=== PATIENT | male | born 1990 | race Caucasian/White ===

== ENCOUNTER 2018-05-25 08:39 | Emergency (ER) | END 2018-05-25 10:15 | disposition home or self-care (01) ==

== ENCOUNTER 2019-01-03 20:17 | Emergency (ER) | payer SELFPAY ==
[~2019-01-03] VITALS: Ht 198.1 cm; Wt 103.7 kg
[~2019-01-03 20:17] MED LIST: ACET325T33 PO; AMOX500C2 PO; HYDR-3498 PO; IBUP-1542 PO; LORA-441 PO; NAPR-985 PO; TRAM50TA2 PO
[2019-01-03 20:27] VITALS: Ht 198.1 cm; Wt 103.7 kg
[2019-01-04] MEDS ORDERED: SOD CHLORIDE 0.9% 1,000 ML IV STA (00:37)
[2019-01-04] MEDS ORDERED: ONDANSETRON 4 MG INJ IV STA (00:37)
[2019-01-04] MEDS ORDERED: FAMOTIDINE 20 MG TAB PO STA (00:37)
[2019-01-04] MEDS ORDERED: KETOROLAC 30 MG INJ IV STA (00:37)
--- NOTE | 2019-01-04 00:45 | ERD ---
ER Documentation Chief Complaint Chief Complaint LOWER BACK PAIN X'S 1 DAY HPI Patient is a 28 years old male with PMHx of lumbar slipped disc presenting to the clinic for severe sharp lumbar pain rated 9/10 since yesterday. Patient denies any trauma/injury, stating that the pain came sporadically. Patient admits to taking OTC ibuprofen and 1 shot of vodka in the morning followed by 3 more shots of vodka 3 hours ago. Patient states that he drinks 1/2 pint of vodka per day. Patient admits to associated chills, night sweats, watery diarrhea, nausea, and emesis. Patient reports of 3 watery diarrhea and 4 NBNB emesis since yesterday. Patient admits to tolerating oral intake recently. Patient denies fever, bloating, hematochezia, melena, abdominal pain, tremors, hallucinations. ROS All systems reviewed and are negative except as per history of present illness. Medications Home Meds Active Scripts Ibuprofen* (Motrin*) 800 Mg Tab, 800 MG PO Q6, #30 TAB Prov:CLAUDIA SHERIFF PA-C 01/04/19 Amoxicillin* (Amoxicillin*) 500 Mg Cap, 500 MG PO Q8, #30 CAP Prov:MARIO CAMPO PA-C 05/25/18 Lorazepam* (Ativan*) 0.5 Mg Tablet, 0.5 MG PO ONCE PRN for ANXIETY, #2 TAB Prov:MARIO CAMPO PA-C 05/25/18 Tramadol HCl (Tramadol HCl) 50 Mg Tablet, 50 MG PO Q4 PRN for PAIN, #12 TAB Prov:MARIO CAMPO PA-C 05/25/18 Acetaminophen* (Tylenol*) 325 Mg Tablet, 2 TAB PO Q6 PRN for PAIN AND OR ELEVATED TEMP, #30 TAB Prov:MARIO CAMPO PA-C 05/25/18 Naproxen* (Naprosyn*) 500 Mg Tablet, 500 MG PO BID PRN for PAIN AND/OR INFLAMMATION, #30 TAB Prov:MARIO CAMPO PA-C 05/25/18 Hydrocodone Bit-Acetaminophen* ([place]*) 5-325 Mg Tab, 1 TAB PO Q4H PRN for PAIN, #16 TAB Prov:AURELIA RODRIGUEZ MD 09/11/15 Ibuprofen* (Motrin*) 600 Mg Tab, 600 MG PO Q6, #20 TAB Prov:AURELIA RODRIGUEZ MD 09/11/15 Allergies Allergies: Coded Allergies: No Known Allergy (Unverified , 09/11/15) PMhx/Soc History of Surgery: No Anesthesia Reaction: No Hx Neurological Disorder: No Hx Respiratory Disorders: No Hx Cardiac Disorders: No Hx Psychiatric Problems: No Hx Miscellaneous Medical Probl: Yes (Lower back pain) Hx Alcohol Use: Yes Hx Substance Use: No Hx Tobacco Use: Yes Smoking Status: Current every day smoker Physical Exam Vitals Vital Signs Date Temp Pulse Resp B/P (MAP) Pulse Ox O2 O2 Flow FiO2 Time Delivery Rate 01/04/19 97.9 91 18 118/66 93 03:07 (83) 01/03/19 97.2 98 18 138/73 97 20:27 (94) Physical Exam Const: No acute distress Head: Atraumatic Eyes: Normal Conjunctiva ENT: Normal External Ears, Nose and Mouth. Neck: Full range of motion. No meningismus. Resp: Clear to auscultation bilaterally Cardio: Regular rate and rhythm, no murmurs Abd: Soft, non tender, non distended. Normal bowel sounds. Enlarged liver palpated on physical exam without tenderness. Negative Peguero sign, Rovsing sign, McBurney's point tenderness, guarding, rebound tenderness, [place] sign, Zepeda Kohler sign. Skin: No petechiae or rashes Back: No midline or flank tenderness Ext: No cyanosis, or edema Neur: Awake and alert Psych: Normal Mood and Affect Result Diagram: 01/04/195 01/04/19 0045 Results 24 hrs Laboratory Tests Test 01/04/19 00:45 White Blood Count 2.9 10^3/ul Red Blood Count 4.69 10^6/ul Hemoglobin 15.9 g/dl Hematocrit 45.2 % Mean Corpuscular Volume 96.4 fl Mean Corpuscular Hemoglobin 33.9 pg Mean Corpuscular Hemoglobin Concent 35.2 g/dl Red Cell Distribution Width 12.5 % Platelet Count 87 10^3/UL Mean Platelet Volume 9.6 fl Immature Granulocytes % 2.400 % Neutrophils % 84.0 % Segmented Neutrophils % (Manual) 58 % Band Neutrophils % (Manual) 25 % Lymphocytes % 8.8 % Lymphocytes % (Manual) 9 % Reactive Lymphocytes % (Manual) 2 % Monocytes % 3.1 % Monocytes % (Manual) 4 % Eosinophils % 0.3 % Basophils % 1.4 % Metamyelocytes % (manual) 2 % Nucleated Red Blood Cells % 1 % Immature Granulocytes # 0.070 10^3/ul Neutrophils # 2.5 10^3/ul Neutrophils # (Manual) 1.7 10^3/ul Band Neutrophils # 0.7 10^3/ul Lymphocytes (Manual) 0.2 10^3/ul Lymphocytes # 0.3 10^3/ul Reactive Lymphocytes # 0.0 10^3/ul Monocytes # 0.1 10^3/ul Monocytes # (Manual) 0.1 10^3/ul Eosinophils # 0.0 10^3/ul Basophils # 0.0 10^3/ul Metamyelocytes # 0.0 10^3/ul Nucleated Red Blood Cells # 0.0 10^3/ul Platelet Estimate DECREASED Giant Platelets 3 % Polychromasia 3+ Urine Color YELLOW Urine Clarity CLEAR Urine pH 6.0 Urine Specific [place] 1.010 Urine Ketones NEGATIVE mg/dL Urine Nitrite NEGATIVE mg/dL Urine Bilirubin NEGATIVE mg/dL Urine Urobilinogen 1+ mg/dL Urine Leukocyte Esterase NEGATIVE Lise/ul Urine Microscopic RBC 0 /HPF Urine Microscopic WBC 2 /HPF Urine Hemoglobin 1+ mg/dL Urine Glucose NEGATIVE mg/dL Urine Total Protein 1+ mg/dl Sodium Level 141 mmol/L Potassium Level 3.7 mmol/L Chloride Level 102 mmol/L Carbon Dioxide Level 24 mmol/L Anion Gap 15 Blood Urea Nitrogen 13 mg/dl Creatinine 0.72 mg/dl Est Glomerular Filtrat Rate mL/min > 60 mL/min Glucose Level 92 mg/dl Calcium Level 8.8 mg/dl Total Bilirubin 0.8 mg/dl Direct Bilirubin 0.00 mg/dl Indirect Bilirubin 0.8 mg/dl Aspartate Amino Transf (AST/SGOT) 2615 IU/L Alanine Aminotransferase (ALT/SGPT) 835 IU/L Alkaline Phosphatase 128 IU/L Total Protein 7.9 g/dl Albumin 4.6 g/dl Globulin 3.30 g/dl Albumin/Globulin Ratio 1.39 Lipase 386 U/L Current Medications Medications Dose Sig/Matias Start Time Status Last (Trade) Ordered Route PRN Stop Time Admin Dose Reason Admin Sodium 1,000 ml @ Q1H STAT 01/04/19 DC 01/04/19 Chloride 1,000 mls/hr IV 00:37 00:58 01/04/19 01:36 Ondansetron 4 mg ONCE STAT 01/04/19 DC 01/04/19 HCl (Zofran IV 00:37 00:58 Inj) 01/04/19 00:40 Famotidine 20 mg ONCE STAT 01/04/19 DC 01/04/19 (Pepcid) PO 00:37 00:57 01/04/19 00:40 Ketorolac 30 mg ONCE STAT 01/04/19 DC 01/04/19 Tromethamine IV 00:37 00:58 (Toradol) 01/04/19 00:40 Procedures/MDM Patient was seen and evaluated for low back pain, nausea, emesis, and diarrhea. Lumbar X-Ray revelled Chronic bilateral L5 pars defects are present without anterolisthesis. Abdominal Ultrasound revealed Hepatomegaly with suggestion of fatty infiltration and Slight pericholecystic fluid is noted with otherwise unremarkable appearing gallbladder. Labs shows leukocytopenia with markedly elevated AST, ALP, ALT. Patient in no acute distress and denies abdominal pain. No further workup required after consultation with Dr. Dougherty. Patient is stable and ready for discharge. Patient was advised to f/u with PCP for GI referral. Departure Diagnosis: Primary Impression: Back pain Back pain location: low back pain Chronicity: acute Back pain laterality: unspecified Sciatica presence: without sciatica Qualified Codes: M54.5 - Low back pain Patient Instructions: Back Pain (Acute Or Chronic) Referrals: [facility] Additional Instructions: Patient advised to return to the ED immediately for new or worsening symptoms. Patient advised to follow up with primary care provider in the next 24-48 hours. Patient verbalized understanding and agrees with treatment plan and course of action. If patient has no primary care they may follow up with [facility] [address] [place] [id number] or [facility] [id number] [place] [phone] or [facility] [address] [place] [address] CLAUDIA SHERIFF PA-C Jan 04, 2019 00:45
[2019-01-04] MEDS ORDERED: IBUP800T48 PO (02:55)
[2019-01-04 03:07] VITALS: BP 118/66; PULSE 91; RESP 18
== END 2019-01-04 03:08 | disposition home or self-care (01) ==
LOC: FTE 20:17
DX: M54.5 Low back pain (principal); F17.210 Nicotine dependence, cigarettes, uncomplicated
CPT/HCPCS: 36415; 72100; 76705; 80053; 81001; 83690; 85025; 96361; 96374; 96375; 99285; J1885; J2405; J7030